=== PATIENT | female | born 1950 | race Caucasian/White ===

== ENCOUNTER 2017-05-15 18:30 | Observation (INO) | payer OTHER, MEDICARE ==
--- NOTE | 2017-05-15 18:51 | DR.GENAD ---
HPI - PCP Primary Care Physician: patria - Complaint/Symptoms Chief Complaint:: pt passed out and hit the back of her head pt states" i woke up on the floor and didn't know how i got there". loc unknown length - Nurses notes reviewed Nurses Notes Review: Yes - Source History Provided: Patient - Mode of Arrival Mode of Arrival: Ambulatory - Timing Onset of Chief Complaint: 05/15/17 Came on: Suddenly - Duration Duration: Minutes - Location Location: head - Severity Severity: Mild - Modifying Factors Worsens:: unknown - Associated Signs and Symptoms Associated Signs and Symptoms: headache PMH - PMH Past Medical History: Yes Past Medical History: Anxiety, Depression, Dyslipidemia, Hypertension Past Surgical History: Yes Surgical History: Appendectomy, Hysterectomy - Family History History of Family Medical Conditions: Yes Family Medical History: [place] - Social History Does any household member use tobacco: No Do you use any recreational Drugs:: No Lives With: Family Lives Where: Home - infectious screening In the last 2 months have you had wt loss of >10#?: NO Have you had fever, night sweats or hemotysis?: No Have you traveled outside the country in the last 6 months?: No Isolation: Standard ROS - Review of Systems Constitutional: negative: Diaphoresis Eyes: No Symptoms Reported ENTM: No Symptoms Reported Respiratoy: No Symptoms Reported Cardiovascular: Syncope Gastrointestinal/Abdominal: No Symptoms Reported Genitourinary: No Symptoms Reported Neurological: No Symptoms Reported Musculoskeletal: No Symptoms Reported Integumentary: No Symptoms Reported Hematologic/Lymphatic: No Symptoms Reported Psychiatric: No Symptoms Reported All Other Systems: Reviewed and Negative PE - Vital Signs Vitals: Temperature 98.9 F Pulse Rate 71 Respiratory Rate 18 Blood Pressure 150/74 O2 Sat by Pulse Oximetry 100 - General General Appearance: Alert - Head Head Exam: Normal Inspection - Eyes Eye exam: Normal Appearance, PERRL, EOMI - ENT ENT Exam: Normal Exam External Ear Exam: Normal External Inspection TM/Canal Exam: Bilateral Normal Nose Exam: Normal Nose Exam Mouth Exam: Normal Inspection Throat Exam: Normal Inspection - Neck Neck Exam: Normal Inspection - Chest Chest Inspection: Normal Inspection - Respiratory Respiratory Exam: Normal Lung Sounds Bilat Respiratory Exam: Bilateral Clear to Auscultation - Cardiovascular Cardiovascular Exam: Regular Rate, Normal Rhythm - Abdominal Exam Abdominal Exam: Normal Inspection Abdominal Tenderness: negative: RUQ, RLQ, LUQ, LLQ, Epigastrium, Suprapubic, Diffuse, Mild, Moderate, Severe, Other - Extremities Extremities Exam: Normal Inspection, Full ROM - Back Back Exam: Normal Inspection, Full ROM - Neurologic Neurological Exam: Alert, Oriented X3, CN II-XII Intact - Psychiatric Psychiatric Exam: Normal Affect, Normal Mood - Skin Skin Exam: Warm, Dry, Intact Course - Consultation Called: 20:01 Call Returned: 20:01 Consultation Comments: Case discussed with DR. Johnson admit for observation classroom monitor ROR - Labs Reviewed Result Diagrams: 05/15/17 18:50 05/15/17 18:50 Laboratory: WBC 8.4 X10^3/uL (3.6-10.0) 05/15/17 18:50 RBC 4.16 X10^6/uL (3.5-5.4) 05/15/17 18:50 Hgb 12.7 g/dL (12.0-16.0) 05/15/17 18:50 Hct 36.8 % (36.0-47.0) 05/15/17 18:50 MCV 88.5 fL (80.0-100.0) 05/15/17 18:50 MCH 30.5 pg (27.0-34.0) 05/15/17 18:50 MCHC 34.5 g/dL (33.0-35.0) 05/15/17 18:50 RDW 12.7 % (11.6-16.5) 05/15/17 18:50 Plt Count 205 X10^3/uL (150.0-450.0) 05/15/17 18:50 MPV 8.3 fL (7.4-11.0) 05/15/17 18:50 Neut % 69.6 % (42.0-75.0) 05/15/17 18:50 Lymph % 22.6 % (21.0-51.0) 05/15/17 18:50 [place] % 6.2 % (0.0-13.0) 05/15/17 18:50 Eos % 0.7 % (0.9-2.9) L 05/15/17 18:50 Baso % 0.9 % (0.2-1.0) 05/15/17 18:50 Neut # 5.8 x10^3/uL (2.2-4.8) H 05/15/17 18:50 Lymph # 1.9 X10^3/uL (1.3-2.9) 05/15/17 18:50 [place] # 0.5 x10^3/uL (0.3-0.8) 05/15/17 18:50 Eos # 0.1 x10^3/uL (0.0-0.2) 05/15/17 18:50 Baso # 0.1 X10^3/uL (0.0-0.1) 05/15/17 18:50 Absolute Nucleated RBC 0.0 /100WBC 05/15/17 18:50 Sodium 135 mmol/L (136-145) L 05/15/17 18:50 Corrected Sodium 135 mmol/L (136-145) L 05/15/17 18:50 Potassium 3.6 mmol/L (3.5-5.1) 05/15/17 18:50 Chloride 100 mmol/L (98-107) 05/15/17 18:50 Carbon Dioxide 28.7 mmol/L (21-32) 05/15/17 18:50 BUN 13 mg/dL (7-18) 05/15/17 18:50 Creatinine 0.87 mg/dL (0.55-1.02) 05/15/17 18:50 Est GFR (MDRD) Af Amer > 60 (>60) 05/15/17 18:50 Est GFR (MDRD) Non-Af > 60 (>60) 05/15/17 18:50 Glucose 113 mg/dL (65-99) H 05/15/17 18:50 Calcium 9.3 mg/dL (8.5-10.1) 05/15/17 18:50 Corrected Calcium TNP 05/15/17 18:50 Phosphorus 2.4 mg/dL (2.6-4.7) L 05/15/17 18:50 Magnesium 1.6 mg/dL (1.7-2.9) L 05/15/17 18:50 Total Bilirubin 0.20 mg/dL (0.2-1.0) 05/15/17 18:50 AST 25 Units/L (15-37) 05/15/17 18:50 ALT 35 Units/L (12-78) 05/15/17 18:50 Alkaline Phosphatase 84 Units/L (46-116) 05/15/17 18:50 Creatine Kinase 136 Units/L (26-192) 05/15/17 18:50 CK-MB (CK-2) < 1.0 ng/mL (0-4.0) 05/15/17 18:50 CK/CKMB % Calc 0.7 % (<4) 05/15/17 18:50 Troponin I < 0.02 ng/mL (0-1.5) 05/15/17 18:50 Total Protein 7.2 g/dL (6.4-8.2) 05/15/17 18:50 Albumin 3.8 g/dL (3.4-5.0) 05/15/17 18:50 Globulin 3.4 g/dL (2.5-4.5) 05/15/17 18:50 Albumin/Globulin Ratio 1.1 Ratio (1.1-2.1) 05/15/17 18:50 - XRAY XRAY Interpreted by: Radiologist XRAY Findings: ct head: no fx or bleed, ?mastoiditis - Discharge Plan Condition: Stable - Follow ups/Referrals Follow ups/Referrals: Abel Johnson [Primary Care Provider] - 3 days - Instructions
[2017-05-15] MEDS ORDERED: ZOFRAN INJ 4 MG VIAL ONE (18:57)
[2017-05-15] MEDS ORDERED: ZOFRAN INJ 4 MG VIAL IVP ONE (18:57)
[2017-05-15 18:58] LABS: BASOPHILS # (AUTO) 0.1 X10^3/uL (0.0-0.1); BASOPHILS % (AUTO) 0.9 % (0.2-1.0); EOSINOPHILS # (AUTO) 0.1 x10^3/uL (0.0-0.2); EOSINOPHILS % (AUTO) 0.7 % (0.9-2.9); HEMATOCRIT 36.8 % (36.0-47.0); HEMOGLOBIN 12.7 g/dL (12.0-16.0); LYMPHOCYTES # (AUTO) 1.9 X10^3/uL (1.3-2.9); LYMPHOCYTES % (AUTO) 22.6 % (21.0-51.0); MEAN CORPUSCULAR HEMOGLOBIN 30.5 pg (27.0-34.0); MEAN CORPUSCULAR HGB CONC 34.5 g/dL (33.0-35.0); MEAN CORPUSCULAR VOLUME 88.5 fL (80.0-100.0); MEAN PLATELET VOLUME 8.3 fL (7.4-11.0); MONOCYTES # (AUTO) 0.5 x10^3/uL (0.3-0.8); MONOCYTES % (AUTO) 6.2 % (0.0-13.0); NEUTROPHILS # (AUTO) 5.8 x10^3/uL (2.2-4.8); NEUTROPHILS % (AUTO) 69.6 % (42.0-75.0); PLATELET COUNT 205 X10^3/uL (150.0-450.0); RED BLOOD COUNT 4.16 X10^6/uL (3.5-5.4); RED CELL DISTRIBUTION WIDTH 12.7 % (11.6-16.5); WHITE BLOOD COUNT 8.4 X10^3/uL (3.6-10.0)
[2017-05-15] MEDS: NS 1000 ML 1,000 ML IV SCH (19:07)
[2017-05-15 19:17] LABS: BLOOD UREA NITROGEN 13 mg/dL (7-18); CALCIUM 9.3 mg/dL (8.5-10.1); CARBON DIOXIDE 28.7 mmol/L (21-32); CHLORIDE 100 mmol/L (98-107); COR NA(FOR HYPERGLY) 135 mmol/L (136-145); CREATININE 0.87 mg/dL (0.55-1.02); GLUCOSE 113 mg/dL (65-99); SODIUM 135 mmol/L (136-145); TROPONIN I < 0.02 ng/mL (0-1.5); eGFR BLACK RACES > 60 (>60); eGFR NON BLACK RACES > 60 (>60)
[2017-05-15 19:21] LABS: ALANINE AMINOTRANSFERASE 35 Units/L (12-78); ALBUMIN 3.8 g/dL (3.4-5.0); ALKALINE PHOSPHATASE 84 Units/L (46-116); ASPARTATE AMINO TRANSFERASE 25 Units/L (15-37); CKMB % 0.7 % (<4); CREATINE KINASE 136 Units/L (26-192); CREATINE KINASE MB < 1.0 ng/mL (0-4.0); MAGNESIUM 1.6 mg/dL (1.7-2.9); PHOSPHORUS 2.4 mg/dL (2.6-4.7); TOTAL PROTEIN 7.2 g/dL (6.4-8.2)
--- NOTE | 2017-05-15 19:38 | CT ---
HISTORY: Dizziness, syncope, head injury Study: CT brain without contrast Comparison: None Technique: Multiple axial images of the brain were obtained from the skull base to the vertex withou t administration of IV contrast. AEC was utilized. Findings: No acute intraparenchymal hemorrhage or mass can be identified. No extra-axial fluid collections are seen. No alteration in the attenuation of the brain parenchyma can be identified to suggest acute o r subacute ischemic change. The ventricular system is symmetric and nondilated. There is a left mas toid effusion which could indicate mastoiditis. IMPRESSION: No acute intracranial process can be identified. Left mastoid effusion which could indicate mastoidit is. Reported By:
[2017-05-15] MEDS ORDERED: ULTRAM ONE (19:47)
[2017-05-15] MEDS ORDERED: ULTRAM PO ONE (19:47)
--- NOTE | 2017-05-15 19:57 | RAD ---
HISTORY: 66-year-old female status post syncopal episode. Study: Frontal view of the chest. Comparison: None. Findings: The trachea is midline. The cardiac silhouette is unremarkable. The lungs are clear without focal c onsolidation, effusion or pneumothorax. Soft tissues are unremarkable. Osseous structures are unrema rkable. IMPRESSION: 1. No acute cardiopulmonary disease. Reported By:
[2017-05-15] MEDS: NEURONTIN CAP 300 MG PO SCH (21:16)
[2017-05-15 21:25] VITALS: BMI 22.4
[2017-05-15] MEDS: NORCO 5/325 MG TAB PO PRN (23:45)
[2017-05-16 00:04] LABS: CKMB % 0.9 % (<4); CREATINE KINASE 112 Units/L (26-192); CREATINE KINASE MB < 1.0 ng/mL (0-4.0); TROPONIN I < 0.02 ng/mL (0-1.5)
[2017-05-16 03:49] LABS: CKMB % 1.1 % (<4); CREATINE KINASE 90 Units/L (26-192); CREATINE KINASE MB < 1.0 ng/mL (0-4.0); TROPONIN I < 0.02 ng/mL (0-1.5)
[2017-05-16] MEDS: NS 1000 ML 1,000 ML IV SCH ×2 (05:18→17:14)
[2017-05-16] MEDS: NORCO 5/325 MG TAB PO PRN ×3 (06:42→21:06)
[2017-05-16 06:50] LABS: BASOPHILS # (AUTO) 0.1 X10^3/uL (0.0-0.1); BASOPHILS % (AUTO) 1.4 % (0.2-1.0); EOSINOPHILS # (AUTO) 0.1 x10^3/uL (0.0-0.2); EOSINOPHILS % (AUTO) 1.5 % (0.9-2.9); HEMATOCRIT 32.6 % (36.0-47.0); HEMOGLOBIN 11.3 g/dL (12.0-16.0); LYMPHOCYTES # (AUTO) 2.2 X10^3/uL (1.3-2.9); LYMPHOCYTES % (AUTO) 38.4 % (21.0-51.0); MEAN CORPUSCULAR HEMOGLOBIN 30.8 pg (27.0-34.0); MEAN CORPUSCULAR HGB CONC 34.6 g/dL (33.0-35.0); MEAN CORPUSCULAR VOLUME 89.1 fL (80.0-100.0); MEAN PLATELET VOLUME 8.4 fL (7.4-11.0); MONOCYTES # (AUTO) 0.4 x10^3/uL (0.3-0.8); MONOCYTES % (AUTO) 6.7 % (0.0-13.0); PLATELET COUNT 180 X10^3/uL (150.0-450.0); RED BLOOD COUNT 3.66 X10^6/uL (3.5-5.4); RED CELL DISTRIBUTION WIDTH 12.5 % (11.6-16.5); WHITE BLOOD COUNT 5.7 X10^3/uL (3.6-10.0)
[2017-05-16 07:10] LABS: ALANINE AMINOTRANSFERASE 26 Units/L (12-78); ALKALINE PHOSPHATASE 62 Units/L (46-116); ASPARTATE AMINO TRANSFERASE 20 Units/L (15-37); BLOOD UREA NITROGEN 12 mg/dL (7-18); CALCIUM 8.4 mg/dL (8.5-10.1); CARBON DIOXIDE 28.5 mmol/L (21-32); CHLORIDE 105 mmol/L (98-107); CKMB % 1.3 % (<4); COR CA(FOR HYPOALB) 9.2 mg/dL (8.5-10.1); CREATINE KINASE 78 Units/L (26-192); CREATINE KINASE MB < 1.0 ng/mL (0-4.0); CREATININE 0.74 mg/dL (0.55-1.02); GLUCOSE 98 mg/dL (65-99); SODIUM 138 mmol/L (136-145); TOTAL PROTEIN 5.9 g/dL (6.4-8.2); TROPONIN I < 0.02 ng/mL (0-1.5); eGFR BLACK RACES > 60 (>60); eGFR NON BLACK RACES > 60 (>60)
[2017-05-16] MEDS: MOBIC TAB 15 MG PO SCH (08:33)
[2017-05-16] MEDS: NEURONTIN CAP 300 MG PO SCH (08:33)
[2017-05-16] MEDS: ZESTORETIC 10/ 12.5MG PO SCH (08:34)
[2017-05-16] MEDS ORDERED: CELECOXIB PO SCH (09:15)
--- NOTE | 2017-05-16 10:53 | DR.H&P ---
H&P - History & Physical for Day of: H&P Date: 05/15/17 - Chief Complaint Chief Complaint: SYNCOPE - Allergies Allergies/Adverse Reactions: Allergies Allergy/AdvReac Type Severity Reaction Status Date / Time Penicillins Allergy Verified 05/15/17 18:32 - History of Present Illness History of Present Illness: IS A 66 YEAR OLD PATIENT OF OURS WHO PRESENTED TO THE EMERGENCY ROOM WITH COMPLAINTS OF PASSING OUT AT HOME. PATIENT' S FAMILY REPORTED THAT SHE HIT HER HEAD ON THE BACK OF THE FLOOR AND LOST CONCIOUSNESS FOR AND UNKNOWN LENGTH OF TIME. PATIENT IS NOTED WITH COMPLAINTS OF HEADACHE. SHE REPORTS THAT JUST PRIOR TO PASSING OUT, SHE RECALLS FEELING DIZZY AND HAVING BLURRED VISION. ON ARRIVAL TO ER, VITALS WERE 98.9-71-18-100%- 150/74. LABS AND XRAY/CT WERE OBTAINED AND REPORTED THE FOLLLOWING: CBC WNL. CMP WNL EXCEPT SODIUM 135, GLUCOSE 113, PHOSPHORUS 2.4, MAGNESIUM 1.6. CARDIAC ENZYMES AND EKG WNL. CHEST XRAY NEGATIVE. BRAIN CT REPORTS NO ACUTE INTRACRANIAL PROCESS IDENTIFIED, LEFT MASTOID EFFUSION WHICH COULD INDICATE MASTOIDITIS. SHE WAS GIVEN ULTRAM 50MG PO AND ZOFRAN 4MG IVP IN ER. PATIENT WAS SEEN IN OUR OFFICE LAST WEEK WITH COMPLAINTS OF CHEST PAIN. WE OBTAINED AN ECHO AND NUCLEAR STRESS TEST WHICH WAS NORMAL. WE ADMITTED PATIENT FOR FURTHER EVALUATION AND TREATMENT. SHE WAS STARTED ON NS @ 125ML/HR, MOBIC 7.5MG DAILY, ZESTORETIC 10/12.5 DAILY, GABAPENTIN 300MG PO BID, AND NORCO 5/325MG PO Q6H PRN PAIN. WE PLAN TO RECHECK LABS AND FOLLOW UP WITH PATIENT IN AM. - Past Medical History Past Medical History: Anxiety, Arthritis, Depression, Dyslipidemia, Hypertension , [place] - Past Surgical History Surgical History: Appendectomy, Hysterectomy - Family History Family Medical History: [place] - Social History Does any household member use tobacco: No Alcohol Use: None Drug Use: None - Medications Home Medications: Alprazolam [Alprazolam] 1 tab PO HS 05/15/17 [History Confirmed 05/15/17] Biotin 5,000 mcg PO DAILY 05/15/17 [History Confirmed 05/15/17] Celecoxib [Celecoxib] 1 tab PO DAILY 05/15/17 [History Confirmed 05/15/17] Cholecalciferol [Vitamin D3] 1,000 unit PO DAILY 05/15/17 [History Confirmed ] Cyanocobalamin (Vitamin B-12) [Vitamin B-12] 1,000 mcg PO DAILY 05/15/17 [ History Confirmed 05/15/17] Gabapentin 300 mg PO HS 05/15/17 [History Confirmed 05/15/17] Gabapentin [Neurontin Cap 100 mg] 100 mg PO BID 05/15/17 [History Confirmed ] Lisinopril/Hydrochlorothiazide [Lisinopril-Hctz 20-25 mg Tab] 1 tab PO DAILY [History Confirmed 05/15/17] Meloxicam 7.5 mg PO BID PRN 05/15/17 [History Confirmed 05/15/17] Pravastatin Sodium 1 tab PO DAILY 05/15/17 [History Confirmed 05/15/17] Vitamin E 400 unit PO DAILY 05/15/17 [History Confirmed 05/15/17] - Review of Systems Constitutional: No Symptoms Reported Eyes: See HPI. denies: No Symptoms Reported, Pain, Vision Change, Conjunctivae Inflammation, Eyelid Inflammation, Redness, Other ENT: No Symptoms Reported. denies: See HPI, Ear Pain, Ear Discharge, Nose Pain , Nose Discharge, Nose Congestion, Mouth Pain, Mouth Swelling, Throat Pain, Throat Swelling, Other Respiratory: No Symptoms Reported Cardiovascular: No Symptoms Reported. denies: Chest Pain, See HPI, Palpitations , Orthopnea, Paroxysmal Noc. Dyspnea, Edema, Light Headedness, Other Gastrointestinal: No Symptoms Reported Genitourinary: No Symptoms Reported Musculoskeletal: No Symptoms Reported Skin: No Symptoms Reported Neurological: No Symptoms Reported - Physical Exam Vital Signs: Temperature 97.7 F Pulse Rate [Right Brachial] 60 Pulse Rate [Left Brachial] 61 Pulse Rate [Apical] 68 Pulse Rate 71 Respiratory Rate 20 Blood Pressure [Left Arm] 119/59 Blood Pressure [Right Arm] 109/68 Blood Pressure 150/74 O2 Sat by Pulse Oximetry 97 Oriented: Normal Eyes: Blurred Vision Ear: Normal Nose: Normal Throat: Normal Respiratory: Clear Throughout Cardiovascular: Normal : Normal Auscultation: Bowel Sounds: Normal Palpation: Normal Tenderness: Normal Skin: Normal Musculoskeletal: Normal Psychiatric: Normal Mood Description: Calm Affect: Normal Speech Pattern: Clear - Assessment/Plan (1) Syncope Qualifiers: Syncope type: unspecified Qualified Code(s): R55 - Syncope and collapse Status: Acute Plan: OBTAIN BRAIN MRI, TELEMETRY, CONTINUE TO MONITOR (2) Chest pain Qualifiers: Chest pain type: unspecified Qualified Code(s): R07.9 - Chest pain, unspecified Status: Acute Plan: SERIAL CARDIAC ENZYMES AND EKG, TELEMETRY, CONTINUE TO MONITOR
[2017-05-16] MEDS ORDERED: ZOFRAN INJ 4 MG VIAL IVP PRN (10:57)
--- NOTE | 2017-05-16 11:00 | PCM.PROG ---
Progress Note - Progress Note for Day of Date: 05/16/17 - Subjective Subjective: IS ALERT AND ORIENTED, SITTING UP IN BED ON MORNING ROUNDS. PATIENT'S FAMILY IS AT BEDSIDE. SHE IS NOTED WITH COMPLAINTS OF SORENESS ACROSS CHEST AND UPPER BACK AND HEADACHE. SHE DENIES DIZZINESS, BLURRED VISION, OR CHEST PAIN THIS AM. LUNGS ARE CLEAR TO AUSCUTATION. VITALS THIS AM ARE 97.8-53-18-97%-103/61. CBC WNL EXCEPT HGB 11.3, HCT 32.6. CMP WNL EXCEPT CALCIUM 8.4, TOTAL PROTEIN 5.9, ALBUMIN 3.2, A/G RATIO 1.0. CARDIAC ENZYMES AND EKGS HAVE BEEN WNL. WE WILL OBTAIN A MRI BRAIN WITHOUT CONTRAST, RECHECK AM LABS AND FOLLOW UP WITH PATIENT IN AM. - Past Medical Family Social History Past Med/Fam/Surg Hx: No changes since H&P Allergies: Allergies Penicillins Allergy (Verified 05/15/17 18:32) - Review of Systems ROS: No change since H&P - Vital Signs and I&O's Vital Signs: Temperature 97.7 F Pulse Rate [Right Brachial] 60 Pulse Rate [Left Brachial] 61 Pulse Rate [Apical] 68 Pulse Rate 71 Respiratory Rate 20 Blood Pressure [Left Arm] 119/59 Blood Pressure [Right Arm] 109/68 Blood Pressure 150/74 O2 Sat by Pulse Oximetry 97 Intake and Output: Intake & Output 05/13/17 05/14/17 05/15/17 05/16/17 11:59 11:59 11:59 11:59 Intake Total 776 Balance 776 - Physical Exam Oriented: Normal Eyes: Normal Ear: Normal Nose: Normal Throat: Normal Respiratory: Normal Cardiovascular: Normal : Normal Auscultation: Bowel Sounds: Normal Palpation: Normal Tenderness: Normal Skin: Normal Musculoskeletal: Normal Psychiatric: Normal Mood Description: Calm Affect: Normal Speech Pattern: Clear - Laboratory and Diagnostics Result Diagrams: 05/16/17 06:37 05/16/17 06:37 Labs: Laboratory WBC 5.7 X10^3/uL (3.6-10.0) 05/16/17 06:37 RBC 3.66 X10^6/uL (3.5-5.4) 05/16/17 06:37 Hgb 11.3 g/dL (12.0-16.0) L 05/16/17 06:37 Hct 32.6 % (36.0-47.0) L 05/16/17 06:37 MCV 89.1 fL (80.0-100.0) 05/16/17 06:37 MCH 30.8 pg (27.0-34.0) 05/16/17 06:37 MCHC 34.6 g/dL (33.0-35.0) 05/16/17 06:37 RDW 12.5 % (11.6-16.5) 05/16/17 06:37 Plt Count 180 X10^3/uL (150.0-450.0) 05/16/17 06:37 MPV 8.4 fL (7.4-11.0) 05/16/17 06:37 Neut % 52.0 % (42.0-75.0) 05/16/17 06:37 Lymph % 38.4 % (21.0-51.0) 05/16/17 06:37 [place] % 6.7 % (0.0-13.0) 05/16/17 06:37 Eos % 1.5 % (0.9-2.9) 05/16/17 06:37 Baso % 1.4 % (0.2-1.0) H 05/16/17 06:37 Neut # 3.0 x10^3/uL (2.2-4.8) 05/16/17 06:37 Lymph # 2.2 X10^3/uL (1.3-2.9) 05/16/17 06:37 [place] # 0.4 x10^3/uL (0.3-0.8) 05/16/17 06:37 Eos # 0.1 x10^3/uL (0.0-0.2) 05/16/17 06:37 Baso # 0.1 X10^3/uL (0.0-0.1) 05/16/17 06:37 Absolute Nucleated RBC 0.0 /100WBC 05/16/17 06:37 Sodium 138 mmol/L (136-145) 05/16/17 06:37 Corrected Sodium TNP 05/16/17 06:37 Potassium 3.8 mmol/L (3.5-5.1) 05/16/17 06:37 Chloride 105 mmol/L (98-107) 05/16/17 06:37 Carbon Dioxide 28.5 mmol/L (21-32) 05/16/17 06:37 BUN 12 mg/dL (7-18) 05/16/17 06:37 Creatinine 0.74 mg/dL (0.55-1.02) 05/16/17 06:37 Est GFR (MDRD) Af Amer > 60 (>60) 05/16/17 06:37 Est GFR (MDRD) Non-Af > 60 (>60) 05/16/17 06:37 Glucose 98 mg/dL (65-99) 05/16/17 06:37 Calcium 8.4 mg/dL (8.5-10.1) L 05/16/17 06:37 Corrected Calcium 9.2 mg/dL (8.5-10.1) 05/16/17 06:37 Phosphorus 2.4 mg/dL (2.6-4.7) L 05/15/17 18:50 Magnesium 1.6 mg/dL (1.7-2.9) L 05/15/17 18:50 Total Bilirubin 0.30 mg/dL (0.2-1.0) 05/16/17 06:37 AST 20 Units/L (15-37) 05/16/17 06:37 ALT 26 Units/L (12-78) 05/16/17 06:37 Alkaline Phosphatase 62 Units/L (46-116) 05/16/17 06:37 Creatine Kinase 78 Units/L (26-192) 05/16/17 06:37 CK-MB (CK-2) < 1.0 ng/mL (0-4.0) 05/16/17 06:37 CK/CKMB % Calc 1.3 % (<4) 05/16/17 06:37 Troponin I < 0.02 ng/mL (0-1.5) 05/16/17 06:37 Total Protein 5.9 g/dL (6.4-8.2) L 05/16/17 06:37 Albumin 3.0 g/dL (3.4-5.0) L 05/16/17 06:37 Globulin 2.9 g/dL (2.5-4.5) 05/16/17 06:37 Albumin/Globulin Ratio 1.0 Ratio (1.1-2.1) L 05/16/17 06:37 - Plan (1) Syncope Status: Acute Qualifiers: Syncope type: unspecified Qualified Code(s): R55 - Syncope and collapse Plan: OBTAIN BRAIN MRI, TELEMETRY, CONTINUE TO MONITOR (2) Chest pain Status: Acute Qualifiers: Chest pain type: unspecified Qualified Code(s): R07.9 - Chest pain, unspecified Plan: SERIAL CARDIAC ENZYMES AND EKG, TELEMETRY, CONTINUE TO MONITOR (3) Hypertension Status: Acute Qualifiers: Hypertension type: essential hypertension Qualified Code(s): I10 - Essential (primary) hypertension Plan: CONTINUE ZESTORETIC, CONTINUE TO MONITOR (4) Hyperlipidemia Status: Acute Qualifiers: Hyperlipidemia type: mixed hyperlipidemia Qualified Code(s): E78.2 - Mixed hyperlipidemia Plan: CONTINUE PRAVACHOL, CONTINUE TO MONITOR
[2017-05-16] MEDS: PRAVACHOL PO SCH (11:14)
--- NOTE | 2017-05-16 11:14 | MRI ---
HISTORY: Syncope, headache common dizziness and weakness. Study: Noncontrast MRI of the brain Comparison: Noncontrast CT scan of the brain done May 15, 2017. Technique: Multiplanar multi-sequence MRI of the brain was obtained utilizing standard departmental p rotocol. Sagittal and axial T1 weighted images were obtained. Axial T2 and flair weighted images we re performed as well. Axial diffusion weighted and ADC trace mapping was performed. Findings: The midline structures appear unremarkable. The evaluation of the brain parenchyma demonstrates no a bnormal signal characteristics to suggest intraparenchymal mass or hemorrhage. No extra-axial fluid collections are observed. The ventricular system appears symmetric and nondilated. The CP angle is normal in its appearance without brainstem mass or evidence for acoustic neuroma. The flow voids on both T1 and T2 weighted imaging appear unremarkable. Evaluation of the diffusion weighted imaging d oes not demonstrate abnormal signal characteristics to suggest acute ischemic change. Small amount o f left mastoid effusion is confirmed. IMPRESSION: 1. Unremarkable MRI of the brain without contrast. 2. Small amount of left mastoid effusion is confirmed. Reported By:
[2017-05-16] MEDS: PROTONIX INJ 40 MG VIAL IVP SCH ×2 (14:00→21:01)
[2017-05-16] MEDS ORDERED: NORCO 5/325 MG TAB PO PRN (17:15)
[2017-05-16] MEDS ORDERED: XANAX PO PRN (17:30)
[2017-05-17] MEDS: NS 1000 ML 1,000 ML IV SCH ×2 (03:31→04:40)
[2017-05-17 05:30] LABS: BASOPHILS # (AUTO) 0.1 X10^3/uL (0.0-0.1); BASOPHILS % (AUTO) 1.4 % (0.2-1.0); EOSINOPHILS # (AUTO) 0.1 x10^3/uL (0.0-0.2); EOSINOPHILS % (AUTO) 1.9 % (0.9-2.9); HEMATOCRIT 34.4 % (36.0-47.0); HEMOGLOBIN 11.7 g/dL (12.0-16.0); LYMPHOCYTES # (AUTO) 2.5 X10^3/uL (1.3-2.9); LYMPHOCYTES % (AUTO) 49.8 % (21.0-51.0); MEAN CORPUSCULAR HGB CONC 34.1 g/dL (33.0-35.0); MEAN CORPUSCULAR VOLUME 90.8 fL (80.0-100.0); MEAN PLATELET VOLUME 9.1 fL (7.4-11.0); MONOCYTES # (AUTO) 0.4 x10^3/uL (0.3-0.8); MONOCYTES % (AUTO) 8.6 % (0.0-13.0); NEUTROPHILS # (AUTO) 1.9 x10^3/uL (2.2-4.8); NEUTROPHILS % (AUTO) 38.3 % (42.0-75.0); PLATELET COUNT 149 X10^3/uL (150.0-450.0); RED BLOOD COUNT 3.79 X10^6/uL (3.5-5.4); RED CELL DISTRIBUTION WIDTH 12.5 % (11.6-16.5); WHITE BLOOD COUNT 5.1 X10^3/uL (3.6-10.0)
[2017-05-17 05:38] LABS: ALANINE AMINOTRANSFERASE 25 Units/L (12-78); ALBUMIN 2.8 g/dL (3.4-5.0); ALKALINE PHOSPHATASE 54 Units/L (46-116); ASPARTATE AMINO TRANSFERASE 20 Units/L (15-37); BLOOD UREA NITROGEN 12 mg/dL (7-18); CALCIUM 8.5 mg/dL (8.5-10.1); CARBON DIOXIDE 27.6 mmol/L (21-32); CHLORIDE 108 mmol/L (98-107); COR CA(FOR HYPOALB) 9.5 mg/dL (8.5-10.1); CREATININE 0.77 mg/dL (0.55-1.02); GLUCOSE 95 mg/dL (65-99); SODIUM 140 mmol/L (136-145); TOTAL PROTEIN 5.4 g/dL (6.4-8.2); eGFR BLACK RACES > 60 (>60); eGFR NON BLACK RACES > 60 (>60)
[2017-05-17 07:55] VITALS: BP 119/62
[2017-05-17] MEDS ORDERED: CELEBREX PO SCH (09:00)
[2017-05-17] MEDS ORDERED: MAGNESIUM SULFATE 1 GM/100 mL PREMIX 2 GM/200 ML BAG IV ONE (09:23)
[2017-05-17] MEDS: MAGNESIUM SULFATE 1 GM/100 mL PREMIX 1 GM/100 ML BAG IV SCH ×2 (09:29→10:57)
[2017-05-17] MEDS: MOBIC TAB 15 MG PO SCH (09:30)
[2017-05-17] MEDS: PRAVACHOL PO SCH (09:30)
[2017-05-17] MEDS: ZESTORETIC 10/ 12.5MG PO SCH (09:31)
[2017-05-17] MEDS: PROTONIX INJ 40 MG VIAL IVP SCH (09:31)
[2017-05-17] MEDS ORDERED: MAGNESIUM SULFATE 1 GM/100 mL PREMIX 1 GM/100 ML BAG IV SCH (10:00)
== END 2017-05-17 11:36 | disposition home or self-care (01) ==
LOC: ER 18:47 → MED/SURG 20:02
PROVIDERS: ADMIT Internal Medicine; ATTEND Internal Medicine
DX: R55 Syncope and collapse (principal); R07.89 Other chest pain; I10 Essential (primary) hypertension; E78.2 Mixed hyperlipidemia; R94.31 Abnormal electrocardiogram [ECG] [EKG]; D64.89 Other specified anemias; R51 Headache; M13.89 Other specified arthritis, multiple sites; F32.89 Other specified depressive episodes; Z91.81 History of falling
CPT/HCPCS: 36415; 70450; 70551; 71010; 80053; 82550; 82553; 83735; 84100; 84484; 85025; 93005; 93010; 96365; 96367; 96374; 99284; A4216; A4222; C9113; G0378; J2405

== ENCOUNTER → 2017-06-27 | Outpatient (CLI) | payer OTHER, MEDICARE ==
--- NOTE | 2017-06-28 09:24 | CT ---
HISTORY: Headaches Study: CT brain without contrast Comparison: 05/15/2017 Technique: Multiple axial images of the brain were obtained from the skull base to the vertex without administra tion of IV contrast. Automated does control was utilized. Findings: The ventricles are top-normal in size. There is mild periventricular low density bilaterally. No intr acranial hemorrhage or edema is seen. There is no extra-axial fluid collection or mass. The midline s tructures are unremarkable. There is mucosal thickening throughout the mastoid air cells on the left which is slightly less prominent. No fracture is seen. IMPRESSION: Minimal atrophy and mild chronic microischemic changes in the deep white matter with no acute intracr anial abnormality seen. Slowly resolving chronic mastoiditis on the left. Reported By:
== END | disposition home or self-care (01) ==
LOC: RAD 14:29
PROVIDERS: ATTEND Internal Medicine
DX: R51 Headache (principal); H70.12 Chronic mastoiditis, left ear
CPT/HCPCS: 70450